=== PATIENT | female | born 1985 | race Caucasian/White ===

== ENCOUNTER 2022-12-22 16:05 | Outpatient (AMB) | payer OTHER, SELFPAY ==
--- NOTE | 2022-12-22 16:07 | MHC.PC.OV ---
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 Will order labs. 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 Pt has a hx of lupus. She was seeing rheumatology previously. She was put on plaquenil which did not agree with her. will refer. [facility] Family History Father Substance abuse in family Family history of mental disorder Mother Family history of mental disorder Sister Family history of mental disorder Brother Family history of mental disorder Social History Housing: House Patient Tobacco Use Status: Current everyday Tobacco user e-Cigarette/Vaping Use: Never Used Current occupational status: employed Cognitive needs: No Hearing needs: No Vision needs: Yes Female Reproductive History Menstrual Date of last menstrual period: 12/04/22 control method: none Date of last pap smear: 11/04/21 History of abnormal pap smear: No History of STI: No Questionnaire PHQ-9 Over the last 2 weeks, how often have you been bothered by any of the following problems? 1. Little interest or pleasure in doing things: several days 2. Feeling down, depressed, or hopeless: several days 3. Trouble falling or staying asleep, or sleeping too much: several days 4. Feeling tired or having little energy: several days 5. Poor appetite or overeating: not at all 6. Feeling bad about yourself - or that you are a failure or have let yourself or your family down: not at all 7. Trouble concentrating on things, such as reading the newspaper or watching television: several days 8. Moving or speaking so slowly that other people could have noticed. Or the opposite - being so fidgety or restless that you have been moving around a lot more than usual: not at all 9. Thoughts that you would be better off or of hurting yourself in some way: not at all Total score: 5 Depression Screening Interpretation: Negative Depression Screening Done: Yes [id number] - PHQ-9 Billing: Yes Source: Developed by Drs. Ace Gar, Yoanna Linton, Sudhir Lopez and colleagues, with an educational kenn from [employer] Thrive Questionnaire Date Thrive assessed: 12/22/22 I am a: Patient What is your living situation today?: I have a steady place to live Within the past 12 months, did the food you bought not last and you didn't have the money to get more?: Never true Within the past 12 months, did you worry whether your food would run out before you got money to buy more?: Never true Do you have trouble paying for medicines?: No Do you have trouble getting transportation to medical appointments?: No Do you have trouble paying your heating and electricity bill?: No Do you have trouble taking care of your child, family member or friend?: No Do you have trouble with day-to-day activities such as bathing, preparing meals, shopping, managing finances, etc.?: No Are you currently unemployed and looking for a job?: No Are you interested in more education?: No AUDIT C Alcohol Use Questionnaire (AUDIT-C) 1. How often do you have a drink containing alcohol?: 2-3 times a week 2. How many drinks containing alcohol do you have on a typical day when you are drinking?: 1 or 2 3. How often do you have six or more drinks on one occasion?: Never Total Score: 3 Score Reviewed/Action Taken: No CRIS-7 AMB Questionnaire CRIS-7 Date CRIS - 7 assessed: 12/22/22 Feeling nervous, anxious, or on edge: 1 = Several days Not being able to stop or control worryin = Several days Worrying too much about different things: 1 = Several days Trouble relaxin = Several days Being so restless that it is hard to sit still: 1 = Several days Becoming easily annoyed or irritable: 1 = Several days Feeling afraid as if something awful might happen: 1 = Several days Total CRIS-7 score (0-4 normal; 5-9 mild; 10-14 moderate; 15-21 severe): 7 Source: Developed by Drs. Ace Gar, Yoanna Linton, Sudhir Lopez and colleagues, with an educational kenn from [employer] CRIS-7 Assessment Billing CRIS-7 Assessment Tool: CRIS-7 Assessment 52285 Review of Systems Const Denies chills and Denies fever(s) Eyes Denies blurry vision ENT Denies vertigo, Denies dizziness and Denies sore throat Card Denies chest pain at rest, Denies chest pain with activity, Denies diaphoresis, Denies dyspnea and Denies dyspnea on exertion Resp Denies cough, Denies dyspnea, Denies dyspnea on exertion and Denies wheezing GI Denies abdominal pain, Denies melena, Denies hematochezia, Denies constipation, Denies diarrhea and Denies loose stools Denies hematuria Musc Denies numbness and Denies tingling Skin/Breast Denies lesions Neuro Denies vertigo, Denies dizziness, Denies numbness and Denies tingling Psych Denies anxiety, Denies depression, Denies homicidal ideation, Denies suicidal ideation and Denies other (substance abuse) Aller/Immun Denies wheezing Physical exam (Primary Care) Vital Signs: Last Vital Signs Pulse 89 12/22/22 16:13 BP 122/86 12/22/22 16:13 Pulse Ox 98 12/22/22 16:13 Oxygen Delivery Method Room Air 12/22/22 16:13 BMI result Body Mass Index 35.0 Tobacco/Smoking Status: Tobacco use Status Tobacco use date assessed 12/22/22 12/22/22 16:19 Patient Tobacco Use Status Current everyday Tobacco 12/22/22 16:19 e-Cigarette/Vaping Use Never Used 12/22/22 16:19 PHQ-9: PHQ-9 Score PHQ-9: Total score 5 12/22/22 16:54 Depression Screening Interpretation: Negative Thrive Assessment: Date of Thrive Assessment Date Thrive assessed 12/22/22 12/22/22 16:54 Const General: cooperative Nutritional Appearance: obese Orientation/consciousness: patient oriented x3 HENMT Head: Yes normal to inspection, Yes normocephalic and Yes atraumatic Ears: TM's normal bilaterally Eyes General: appearance normal, both eyes and all related structures Alignment and Position: alignment normal and position normal Neck Neck: Yes normal visual inspection and Yes no lymphadenopathy Thyroid: Thyroid normal Resp Effort & Inspection: normal respiratory effort Auscultation: clear to auscultation bilaterally Cardio Rate: regular rate Rhythm: regular rhythm Heart sounds: S1 normal heart sound present, S2 normal heart sound present and no murmurs GI Palpation (GI): Soft to palpation and nontender Auscultation: normal bowel sounds Skin Other: very large bald spot to right occipital region of head Rashes: no rashes Neuro General: patient oriented x3, moves all extremities, no focal motor deficits and deep tendon reflexes 2+ bilaterally Romberg Test: Negative Psych Appearance: grossly normal Mental Status: mental status grossly normal Speech and movement: Normal speech and movement present Affect: normal affect Attitude: cooperative Thought process: Normal thought process present Thought content: Normal thought content present Insight: Good insight present (Psych) Judgement: Good judgement present (Psych) Assessment and Plan Assessment & Plan (1) Lupus: Code(s): M32.9 - Systemic lupus erythematosus, unspecified Plan: Referred to rheumatology (2) Physical exam: Code(s): Z00.00 - Encounter for general adult medical examination without abnormal findings Plan: Labs ordered (3) Screening for cervical cancer: Code(s): Z12.4 - Encounter for screening for malignant neoplasm of cervix 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 Scribed for CARLOS Gerardo by Angelique Monroy medical office assistant instructor, on 12/22/2022 at 16:25 EST Orders: Orders Complete Blood Count Auto Diff Today Z00.00 - Encounter for general adult medical examination without abnormal findings TSH reflex Free T4 Today Z00.00 - Encounter for general adult medical examination without abnormal findings UA CC w/rflx Micro + Cult Today Z00.00 - Encounter for general adult medical examination without abnormal findings Comprehensive [place]. Panel Fast Today Z00.00 - Encounter for general adult medical examination without abnormal findings Lipid Panel Today Z00.00 - Encounter for general adult medical examination without abnormal findings Referrals Rheumatology Referral M32.9 - Systemic lupus erythematosus, unspecified EXECUTIVE TALENT ACQUISITION CONSULTANT Referral Z12.4 - Encounter for screening for malignant neoplasm of cervix Coding Level of Care Code New Pt Prev Care 18-39yr([id number] Diagnoses Lupus M32.9 Physical exam Z00.00 Screening for cervical cancer Z12.4 Additional Codes CRIS-7 Assessment Billing - CRIS-7 Assessment Tool: CRIS-7 Assessment [id number] ([id number])
[2022-12-22 16:13] VITALS: BP 122/86; PULSE 89; O2SAT 98; BMI 35.0
== END 2022-12-22 16:45 | disposition home or self-care (01) ==
PROVIDERS: PCP Nurse Practitioner Family; Visit Provider Nurse Practitioner Family
DX: M32.9 Systemic lupus erythematosus, unspecified (principal); Z00.00 Encounter for general adult medical examination without abnormal findings; Z12.4 Encounter for screening for malignant neoplasm of cervix
CPT/HCPCS: 99385

== ENCOUNTER 2023-02-24 08:37 | Outpatient (AMB) | payer OTHER, SELFPAY ==
[2023-02-24 08:39] VITALS: BP 140/90; PULSE 107; TEMP 36.1; O2SAT 98; BMI 40.9
--- NOTE | 2023-02-24 08:39 | A.OFFVIS_ITS ---
Intake Vital Signs 02/24/23 08:39 Height 5 ft 4 in Weight 238 lb 1.588 oz BMI 40.9 BP 140/90 H Blood Pressure Location Lt brachial Position Sitting Pulse 107 H Pulse Source Pulse Oximeter Temp 97 F Temp Source Skin Pulse Oximetry (%) 98 Oxygen Delivery Method Room Air Intake Visit Reasons: SLE Intake Note: New pt presents today for SLE consult. Former rheum patient at [facility]. Last labs done in December. No sx's today. Reports joint pain, fatigue, hair loss early February. Capacity Planning Engineer Required: No Accompanied by: Self / Same As Patient Allergies No Known Allergies Allergy (Verified 02/24/23 08:42) Medication List - Last Reconciled 02/24/23 by Camille Strickland MD No Known Home Meds HPI HPI Comments History of Present Illness Details This is a 38-year-old female with SLE who presents as a new patient. Patient stated that for years she has had flare-ups of generalized weakness, brain fog, body aches, joint pains especially hands, shoulders and hips. She also gets burning rashes on her face and has burning sensation in her mouth when she goes out in the sun. More recently she has been having an area of enlarging alopecia in the back of her scalp towards the right. She denies any history of DVT/PE. Patient had 1 and 1 child. No abortions or miscarriages. Denies history suggestive of Raynaud's. States that her sister has Reyes's thyroiditis. She was evaluated by Rheumatology at [facility] back in 2020. She was started on hydroxychloroquine. She took it for 1-2 weeks and it did not agree with her. She does not like to take medications. 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 Cognitive needs: No Hearing needs: No Vision needs: Yes Female Reproductive History Menstrual Total pregnancies: 1 Number of Living Children: 1 Review of Systems Const Reports fatigue, Denies fever(s), Reports headache(s) and Reports weakness Eyes Reports dry eyes and Reports itchy eyes ENT Reports dizziness, Reports dry mouth and Reports headache(s) Musc Reports myalgias and Reports arthralgias Skin/Breast Reports alopecia and Reports rash Neuro Reports dizziness, Reports headache(s) and Reports weakness Psych Reports anxiety and Reports depression Endo Reports fatigue Aller/Immun Reports itchy eyes Physical Exam Vital Signs: Last Vital Signs Temp 97 F 02/24/23 08:39 Pulse 107 H 02/24/23 08:39 BP 140/90 H 02/24/23 08:39 Pulse Ox 98 02/24/23 08:39 Oxygen Delivery Method Room Air 02/24/23 08:39 BMI result Body Mass Index 40.9 Const General: cooperative, healthy appearing and comfortable Nutritional Appearance: obese morbidly obese Orientation/consciousness: patient oriented x3 Limitations: no limitations HEENT Other: Mildly dry oral mucosa Head: Yes normocephalic and Yes atraumatic Resp Effort & Inspection: normal respiratory effort and able to speak in complete sentences Auscultation: clear to auscultation bilaterally Cardio Rate: regular rate Rhythm: regular rhythm GI Inspection: No distended Palpation (GI): Soft to palpation and nontender Skin Other: A patch of alopecia in the posterior scalp, towards the right without no scaling or erythema General skin exam: no rashes or lesions noted Neuro General: patient oriented x3 Extrem Other: No active synovitis Normal nailfold capillaroscopy Results Reviewed Results Reviewed: Labs 2020 DEMAR 1-640 homogeneous MECHANICAL EQUIPMENT TEST ENGINEER/Park/SSA/SSB/C3/C4 RF/CCP all negative/normal DsDNA 1:20 (<1:20) HLA B27 negative Labs 10/2022 ESR 16 CBC nl CPK 61 U PCR Urinalysis is normal SSA/SSB/Park/MECHANICAL EQUIPMENT TEST ENGINEER/Scl 70/dsDNA/Rosemary 1 all negative Vitamin-D 31 BMP unremarkable AST 46 (<37) ALT 67 (<40) CRP 7.7 (<4.0) Assessment & Plan Assessment & Plan (1) Lupus: Comment: dx 2020 (arthralgias, fatigue, brain fog, photosensitive rashes, ++DEMAR, borderline positive dsDNA) Code(s): M32.9 - Systemic lupus erythematosus, unspecified Plan: This is a 38-year-old female with SLE who presents as a new patient. She is changing rheumatologists. There are no rashes or active synovitis on exam. Most recent SLE activity workup was negative. She has not had any SLE organ involvement. In the past patient took hydroxychloroquine for about 1 week and did not like it. She states that she does not want to take any medications. She would like natural treatments Discussed turmeric and vitamin-D supplementation, avoiding sun exposure. Follow-up with Dermatology for alopecia Re-evaluate in 6 months. Labs before next visit in 6 months Plan I spent 48 minutes reviewing patient's chart, evaluating patient, ordering diagnostic workup, counseling patient and documenting in the chart Orders: Orders DNA Double Stranded-Crithidia 6 Months M32.9 - Systemic lupus erythematosus, unspecified Erythrocyte Sedimentation Rate 6 Months M32.9 - Systemic lupus erythematosus, unspecified Protein Creatinine Ratio, Ur 6 Months M32.9 - Systemic lupus erythematosus, unspecified Thyroglobulin Antibodies 6 Months E07.9 - Disorder of thyroid, unspecified Thyroid Peroxidase Antibodies 6 Months E07.9 - Disorder of thyroid, unspecified TSH reflex Free T4 6 Months E07.9 - Disorder of thyroid, unspecified Anti DNA DS Antibody 6 Months M32.9 - Systemic lupus erythematosus, unspecified Complement C3 6 Months M32.9 - Systemic lupus erythematosus, unspecified Complement C4 6 Months M32.9 - Systemic lupus erythematosus, unspecified C Reactive Protein 6 Months M32.9 - Systemic lupus erythematosus, unspecified UA w Microscopic 6 Months M32.9 - Systemic lupus erythematosus, unspecified Complete Blood Count Auto Diff 6 Months E07.9 - Disorder of thyroid, unspecified Comprehensive Met. Panel 6 Months E07.9 - Disorder of thyroid, unspecified Coding Level of Care Code New Pt Level 4 (82088) Diagnoses Lupus M32.9
== END 2023-02-24 09:16 | disposition home or self-care (01) ==
PROVIDERS: PCP Nurse Practitioner Family; Visit Provider Student in an Organized Health Care Education/Training Program
DX: M32.9 Systemic lupus erythematosus, unspecified (principal)
CPT/HCPCS: 99204

== ENCOUNTER → 2023-02-24 08:37 | Outpatient (BNVA) | payer OTHER, SELFPAY | PROVIDERS: PCP Nurse Practitioner Family; Visit Provider Student in an Organized Health Care Education/Training Program ==

== ENCOUNTER 2023-05-31 13:03 | Outpatient (AMB) | payer OTHER, SELFPAY ==
[2023-05-31 13:05] VITALS: BP 150/74; BMI 40.7
--- NOTE | 2023-05-31 13:05 | A.OFFVIS_ITS ---
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 She has a history of delivering 1 child at [place] [id number] 14 years ago. She did have gestational diabetes at that time she does sometimes have high blood pressure and her blood pressure needs to be taken again at the end of the visit and improves usually. She does have lupus but she is not feeling good about the medicine. She saw her new primary care provider last and did not realize until she open the portal to check on this appointment that she has blood work that has been ordered. She has had a weight issue for many years she turned sometimes can lose it and then sometimes gained it back. Right now she is trying to get started and she started just this week with intermittent fasting and feels better doing that and she is trying to be very careful with carbs and what she eats and helping the family make good choices as well. She admits to having facial hair for many many years but it was sometime after having had her children she does get periods at least once a month but they are not coming exactly when she expects them and sometimes they come closer than she expects. [facility] Medical History Lupus Family History Father Substance abuse in family Family history of mental disorder Mother Family history of mental disorder Sister Family history of mental disorder Reyes's thyroiditis Brother Family history of mental disorder Other Hx of autoimmune disorder Social History (Updated 05/31/23 @ 13:07 by ANGELES Sheikh) Household Members: Spouse and Children Housing: House Patient Tobacco Use Status: Current everyday Tobacco user Tobacco use type: Cigarette Cigarette Packs Per Day: 5 e-Cigarette/Vaping Use: Never Used Substance Use Type: Marijuana Current occupational status: employed 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 Cognitive needs: No Hearing needs: No Vision needs: Yes Female Reproductive History Menstrual Age of Menarche: 13 Duration of menses: 3-5 days Date of last menstrual period: 05/24/23 control method: none Total pregnancies: 1 Full term: 1 Number of Living Children: 1 Physical Exam Vital Signs: Last Vital Signs BP 150/74 H 05/31/23 13:05 BMI result Body Mass Index 40.7 Const Other: Hirsute is Um noted especially facial (shaved) General: healthy appearing, comfortable, no acute distress, well developed and alert Nutritional Appearance: average body habitus and obese Orientation/consciousness: patient oriented x3 Limitations: no limitations HEENT Head: Yes normocephalic Neck Neck: Yes normal visual inspection Chest Chest palpation & inspection: normal inspection of the chest Breast/axilla inspection: normal inspection of the breasts and normal inspection of the axillae Breast/axilla palpation: normal palpation of the breasts and normal palpation of the axillae Resp Effort & Inspection: normal respiratory effort GI Inspection: Yes normal to inspection, No Abdominal wall edema and No distended Palpation (GI): Soft to palpation and nontender Other: Speculum exam within normal limits vagina pink and moist cervix multiparous pink smooth moist with normal appearing mucus approaching midcycle. Uterus midposition to anteverted mobile nontender adnexa nontender fair tone with Kegel. General: Yes bladder normal to palpation External Female Exam: normal external appearance and normal appearance of the urethra Speculum Exam - Vagina: normal appearance of the vagina, normal palpation and normal vaginal discharge Speculum Exam - Cervix: normal appearance of the cervix, normal palpation and nontender Bimanual exam- vagina & uterus: normal bimanual exam, normal palpation, uterine size normal, bladder normal to palpation, consistency normal, normal palpation, uterine mobility normal, uterine shape normal, No Cervical tenderness present, non-tender and no cervical motion tenderness Bimanual Exam- Adnexa, other: normal adnexae, no masses, normal and No adnexal tenderness Neuro General: patient oriented x3 Assessment & Plan Assessment & Plan (1) Hirsutism: Code(s): L68.0 - Hirsutism (2) Well woman exam with routine gynecological exam: Code(s): Z01.419 - Encounter for gynecological examination (general) (routine) without abnormal findings (3) Menstrual periods irregular: Code(s): N92.6 - Irregular menstruation, unspecified (4) Obesity: Code(s): E66.9 - Obesity, unspecified Plan -----Discussed in this visit the following: healthy balanced diet, regular and consistent exercise, getting recommended health screens, doing the best she can for her particular health concerns, kegel exercises, pap smear screening and followup recommendations, mammography screening and SBE, normal changes in cycles in her life stage--- .Discussed in general terms the challenges of obesity and challenges for her health and efforts she is engaging in to manage this including dietary changes water intake attention to sleep inclusion of a regular exercise have it and dealing with the may need stressors of life that can contribute to obesity in general. Encouraged her to continue in all have her best efforts ---Discussed PCOS in general and specifically about the interplay of the abnormal hormonal milieu related to being overweight, with the elevations of many hormone levels, including testosterone and estrogen, as well as others that contribute to cycles that are anovulatory and therefore prolonged, and when periods do come they come very heavy, and can contribute to lots of cramping, with passage of clots and anemia. Discussed the common symptoms related to the elvated hormonal levels, including increased facial hair, male pattern hair thinning, acne, and increased central abdominal girth. Discussed the interplay with difficulty getting when desired, but still possible, and therefore the need to contracept as appropriate and when needed. Discussed the role of weight loss as the primary, most important, and most likely to succeed, intervention, in achieving healthier status as regards PCOS, and ovulatory regular cycles. Additionally the very important relationship to elevated insulin levels, and blood sugars, and high risk of pre diabetes, progressing to diabetes as well as other metabolic syndromes related to this was discussed. Also discussed common interventions for some of the above, including if appropriate, use of oral contraceptives, and progestin iuds, and provera. I ordered a testosterone level that she can add to all the fasting lab work that she still has to do for her primary care provider additionally appears like her other physician has ordered some labs as well. Discussed the importance of making sure that she has all those other factors checked like hypertension which she is floating with as well as the diabetes and all of the other dyscrasias that can occur in the face of obesity and in the setting of a PCOS type picture discussed that no one particular test diagnosis it it is more of a syndrome and as fertility is not her concern more the concern is the risk for diabetes and hypertension and other metabolic disorders which she will be checking with her primary. Orders: Orders Pap Smear Today Z12.4 - Encounter for screening for malignant neoplasm of cervix Testosterone, Free/Total Today E66.9 - Obesity, unspecified, L68.0 - Hirsutism, N92.6 - Irregular menstruation, unspecified, Z01.419 - Encounter for gynecological examination (general) (routine) without abnormal findings Coding Level of Care Code New Pt Prev Care 18-39yr([id number] Diagnoses Hirsutism L68.0 Well woman exam with routine gynecological exam Z01.419 Menstrual periods irregular N92.6 Obesity E66.9
== END 2023-05-31 13:49 | disposition home or self-care (01) ==
PROVIDERS: PCP Nurse Practitioner Family; Visit Provider Advanced Practice Midwife
DX: Z01.419 Encounter for gynecological examination (general) (routine) without abnormal findings (principal); L68.0 Hirsutism; N92.6 Irregular menstruation, unspecified; E66.9 Obesity, unspecified
CPT/HCPCS: 99385

== ENCOUNTER 2023-05-31 13:03 | Outpatient (REF) | payer OTHER, SELFPAY ==
[2023-06-08 06:04] LABS: HPV 16 RNA NOT DETECTED (NOT DETECTED); HPV mRNA E6/E7 rflx Detected (Not Detected)
== END 2023-05-31 13:04 | disposition home or self-care (01) ==
LOC: HO.LNP 13:03
PROVIDERS: PCP Nurse Practitioner Family; Visit Provider Advanced Practice Midwife
DX: Z01.419 Encounter for gynecological examination (general) (routine) without abnormal findings (principal); Z11.51 Encounter for screening for human papillomavirus (HPV); N92.6 Irregular menstruation, unspecified
CPT/HCPCS: 87624; 87625; 88142

== ENCOUNTER 2023-06-14 07:54 | Outpatient (REF) | payer OTHER, SELFPAY ==
[2023-06-14 10:33] LABS: Appearance Urine Clear; Color Urine Yellow; Glucose Urine UA 100 mg/dL (Negative); Leukocyte Esterase Urine Negative (Negative); Nitrite Urine Negative (Negative); Specific Gravity - Urine 1.015 (1.005-1.025); Urine Blood Negative (Negative); Urine Ketones Negative (Negative); Urine Protein Negative (Neg-Trace)
[2023-06-14 10:37] LABS: MANUAL DIFF FLAG NO
[2023-06-14 11:02] LABS: Basophils Absolute Auto 0.1 X10*3/uL (0.0-0.2); Basophils Percent Auto 0.7 % (0-2); Eosinophils Absolute Auto 0.3 X10*3/uL (0.0-0.4); Eosinophils Percent Auto 4.3 % (0-4); Hematocrit 45.1 % (37.0-47.0); Hemoglobin 15.2 g/dl (12.0-16.0); Imm Gran Abs Auto 0.02 X10*3/uL (0.00-0.03); Imm Gran Pct Auto 0.3 % (0.0-0.4); Lymphocytes Absolute Auto 1.6 X10*3/uL (1.2-4.9); Mean Corpuscular HGB Conc 33.7 g/dl (31.0-35.0); Mean Corpuscular Hemoglobin 30.2 pg (27.0-33.0); Mean Corpuscular Volume 89.5 fL (80.0-98.0); Mean Platelet Volume 10.8 fL (9.4-12.3); Monocytes Absolute Auto 0.5 X10*3/uL (0.1-1.2); Monocytes Percent Auto 6.9 % (2-11); Neutrophils Absolute Auto 4.6 x10*3/uL (2.0-8.3); Neutrophils Percent Auto 64.8 % (45-73); Platelet Count 242 X10*3/uL (160-400); Red Blood Count 5.04 X10*6/uL (4.20-5.50); Red Cell Distribution Width 12.4 % (11.0-16.0); White Blood Count 7.1 X10*3/uL (4.8-10.8)
[2023-06-14 11:17] LABS: Alanine Aminotransferase 65 U/L (0-31); Albumin Level 4.2 g/dL (3.5-5.0); Alkaline Phosphatase 55 U/L (39-117); Anion Gap 12 (12-20); Aspartate Amino Transferase 31 U/L (5-31); Bilirubin Total 0.5 mg/dL (0.0-1.0); Blood Urea Nitrogen 9 mg/dL (9-16); Calcium 8.9 mg/dL (8.4-10.2); Carbon Dioxide 29 mmol/L (22-29); Chloride 102 mmol/L (96-108); Cholesterol 191 mg/dL (<200); Estimated Glomerular Filt Rate > 60; Glucose Fasting 213 mg/dL (60-99); HDL Cholesterol 41 mg/dL (>40); LDL Cholesterol Calculated 116 mg/dL (<100); Potassium 4.5 mmol/L (3.3-5.1); Sodium 138 mmol/L (135-145); TSH reflex Free T4 1.29 uIU/mL (0.32-4.0); Triglycerides 171 mg/dL (<150)
[2023-06-18 16:18] LABS: Testosterone, Free 9.8 pg/mL (0.1-6.4); Testosterone, Total 53 ng/dL (2-45)
== END 2023-06-14 07:55 | disposition home or self-care (01) ==
LOC: HO.HMGCLDS 07:54
PROVIDERS: Advanced Practice Midwife; PCP Nurse Practitioner Family; Visit Provider Nurse Practitioner Family
DX: Z00.00 Encounter for general adult medical examination without abnormal findings (principal); E66.9 Obesity, unspecified; L68.0 Hirsutism; N92.6 Irregular menstruation, unspecified
CPT/HCPCS: 36415; 80053; 80061; 81003; 84402; 84403; 84443; 85025

== ENCOUNTER 2023-06-19 07:41 | Outpatient (AMB) | payer OTHER, SELFPAY ==
--- NOTE | 2023-06-19 07:51 | MHC.PC.OV ---
Intake Visit Reasons: lab review from 06/13 Allergies No Known Allergies Allergy (Verified 05/31/23 13:06) Tobacco use date assessed: 12/22/22 Dental Screening Dental Screen Date: 12/22/22 HPI lab review from 06/13 HPI Details recent lab work showed a increased FBS of 213. Repeating this in the near future. Most likely will start metformin in the near future, ? PCOS component as well. Pt does report having a eye exam appt set up for this february. Pt denies any polyuria, polydipsia, or neuropathy. SHe just started intermittent fasting 16-8 hrs. Encouraged working on diet as well. I will follow up with her and await repeated labs. 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 Ace Gar, Yoanna Linton, Sudhir Lopez and colleagues, with an educational kenn from [employer]. Physical exam (Primary Care) Tobacco/Smoking Status: Tobacco use Status Tobacco use date assessed 12/22/22 06/19/23 07:54 Patient Tobacco Use Status Current everyday Tobacco 06/19/23 07:54 Tobacco use type Cigarette 06/19/23 07:54 e-Cigarette/Vaping Use Never Used 06/19/23 07:54 Thrive Assessment: Date of Thrive Assessment Date Thrive assessed 12/22/22 06/19/23 07:54 Const General: cooperative, comfortable and no acute distress Psych Appearance: grossly normal Mental Status: mental status grossly normal Speech and movement: Normal speech and movement present Affect: normal affect Thought process: Normal thought process present Thought content: Normal thought content present Insight: Good insight present (Psych) Judgement: Good judgement present (Psych) Telehealth Telehealth Location of provider rendering services: practice address Location of patient: address on file Patient Identification confirmed using: Name, : Yes Telehealth method: video Patient verbally consented to billing insurance company: Yes Patient informed of any privacy concerns related to visit: Yes Minutes spent on Phone/Video with Pt.: 15 Assessment and Plan Assessment & Plan (1) PCOS (polycystic ovarian syndrome): Code(s): E28.2 - Polycystic ovarian syndrome Plan: follows up with senior developer (2) Elevated fasting blood sugar: Code(s): R73.01 - Impaired fasting glucose Plan repeating labs, pt will work on her diet, intermittent fasting as well, will send meter and supplies after repeat labs. may start metformin. Orders: Orders Comprehensive [place]. Panel Fast Today R73.01 - Impaired fasting glucose TSH reflex Free T4 Today R73.01 - Impaired fasting glucose Lipid Panel Today R73.01 - Impaired fasting glucose Hemoglobin A1c Today R73.01 - Impaired fasting glucose Microalbumin, Random (w Creat) Today R73.01 - Impaired fasting glucose Complete Blood Count Auto Diff Today R73.01 - Impaired fasting glucose UA CC w/rflx Micro + Cult Today R73.01 - Impaired fasting glucose Coding Level of Care Code Tele Est Pt Level 3 (73410) Diagnoses PCOS (polycystic ovarian syndrome) E28.2 Elevated fasting blood sugar R73.01
== END 2023-06-19 10:48 | disposition home or self-care (01) ==
LOC: HO.HMGC 07:41
PROVIDERS: PCP Nurse Practitioner Family; Visit Provider Nurse Practitioner Family
DX: E28.2 Polycystic ovarian syndrome (principal); R73.01 Impaired fasting glucose
CPT/HCPCS: 99213

== ENCOUNTER 2023-07-03 13:45 | Outpatient (AMB) | payer OTHER, SELFPAY ==
--- NOTE | 2023-07-03 13:46 | A.OFFVIS_ITS ---
Intake Visit Reasons: Tv lab results Comprehensive Ophthalmologist Required: No Allergies No Known Allergies Allergy (Verified 07/03/23 13:46) Medication List - Last Reconciled 07/03/23 by Milagros Parr CNM No Known Home Meds Is last menstrual period known: Yes Last menstrual period: 06/28/23 Post menopausal: No HPI HPI Tv lab results: Details: This is a visit to discuss patient's lab results PFSH Medical History Lupus Family History Father Substance abuse in family Family history of mental disorder Mother Family history of mental disorder Sister Family history of mental disorder Reyes's thyroiditis Brother Family history of mental disorder Other Hx of autoimmune disorder Social History Household Members: Spouse and Children Housing: House Patient Tobacco Use Status: Current everyday Tobacco user Tobacco use type: Cigarette Cigarette Packs Per Day: 5 e-Cigarette/Vaping Use: Never Used Substance Use Type: Marijuana Current occupational status: employed 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 Cognitive needs: No Hearing needs: No Vision needs: Yes Female Reproductive History Menstrual Age of Menarche: 13 Date of last menstrual period: 06/28/23 control method: none Telehealth Telehealth Telehealth Platform: ConnectToHome Location of provider rendering services: practice address Location of patient: address on file Patient Identification confirmed using: Name, : Yes Telehealth method: video Patient verbally consented to treatment: Yes Patient verbally consented to billing insurance company: Yes Patient informed of any privacy concerns related to visit: Yes Minutes spent on Phone/Video with Pt.: 10 Results Reviewed Results Reviewed: lissette: Susan Callahan Age/Sex: 38/F : 1985 Unit#: [id number] Attend Dr: Tae Boudreaux MECHANICAL TECH-BC Re06/14/23 Status: DEP [facility] Disch: SPEC : [id number] EMIR: 06/14/230758 STATUS: COMP REQ : [id number] RECD: 06/14/23-[address]: Tae Boudreaux [facility]- COMP: 06/14/23-1116 ENTERED: 06/14/[address] [facility] [address]: ORDERED: CMP Fast, Lipid Panel, TSH Rflx Test Result Flag Reference Sodium 138 135-145 mmol/L Potassium 4.5 3.3-5.1 mmol/L CL 102 96-108 mmol/L CO2 29 22-29 mmol/L Gap 12 12-20 BUN 9 9-16 mg/dL Creat 0.69 0.5-1.4 mg/dL EGFR > 60 NOTE: For -Japanese individuals, multiply the result by 1.210. Chronic Kidney Disease: Estimated GFR < 60 mL/min/1.73m2 Severe Kidney Disease: Estimated GFR < 15 mL/min/1.73m2 FBS 213 H 60-99 mg/dL A fasting glucose of 126 mg/dl or greater on more than one occasion is considered diagnostic of diabetes. CA 8.9 8.4-10.2 mg/dL Total Bili 0.5 0.0-1.0 mg/dL AST (GOT) 31 5-31 U/L ALT (GPT) 65 H 0-31 U/L Protein, Total 7.0 6.5-8.0 g/dL Alb 4.2 3.5-5.0 g/dL Triglyceride 171 H <150 mg/dL Desirable Triglyceride: less than 150 mg/dL Borderline High Triglyceride 150-199 mg/dL High Triglyceride: 200-499 mg/dL Very High Triglyceride: greater than or equal to 5OO mg/dL Cholesterol 191 <200 mg/dL Desirable Cholesterol: less than 200 mg/dL Borderline High Cholesterol: 200-239 mg/dL High Cholesterol: greater than 239 mg/dL LDL Calculated 116 H <100 mg/dL Desirable LDL: less than 100 mg/dL Near Optimal/Above Optimal LDL: 110-129 mg/dL Borderline High LDL: 130-159 mg/dL High LDL: 160-189 mg/dL Very High LDL: greater than or equal to 190 mg/dL HDL 41 >40 mg/dL Desirable HDL: greater than 40 mg/dL Note: This HDL assay may give artificially low results in patients with liver disease. Alk Phos 55 39-117 U/L TSH 1.29 0.32-4.0 uIU/mL Age/Sex: 38/F : 1985 Unit#: [id number] Attend Dr: Tae Boudreaux Re06/14/23 Status: DEP REF Location: [facility] Disch: SPEC : [id number] EMIR: 06/14/23 STATUS: COMP REQ : [id number] RECD: 06/14/23-[address]: Milagros Parr CNM COMP: 06/18/23 ENTERED: 06/14/[address]: Tae Boudraeux ORDERED: Testost Fr & T Test Result Flag Reference Testost, Tot 53 H 2-45 ng/dL For additional information, please refer to http://education.BurudaConcert/faq/ [email or web address] (This link is being provided for informational/ educational purposes only.) This test was developed and its analytical performance characteristics have been determined by [facility] [place], [place]. It has not been cleared or approved by the U.S. Food and Drug Administration. This assay has been validated pursuant to the CLIA regulations and is used for clinical purposes. Testost, Free 9.8 H 0.1-6.4 pg/mL This test was developed and its analytical performance characteristics have been determined by [facility] [place], [place]. It has not been cleared or approved by the U.S. Food and Drug Administration. This assay has been validated pursuant to the CLIA regulations and is used for clinical purposes. THIS TEST WAS PERFORMED AT: [employer] [address] ALEJANDRA GARNER MD,PHD lissette: Susan Callahan Age/Sex: 38/F Attending: Milagros Parr CNM : 1985 Submitted by: Milagros Parr CNM Copies to: Tae Boudreaux MR #: [id number] Status: DEP REF Collected: 05/31/23 Location: [facility] Received: 06/02/23 Interpretation General Category: Epithelial cell abnormality. Adequacy: Endocervical component present. Interpretation: Atypical squamous cells of undetermined significance, rare. Abundant blood present. HPV mRNA E6/E7: DETECTED This assay detects E6/E7 viral messenger RNA (mRNA) from 14 high-risk HPV types (16, 18, 31, 33, 35, 39, 45, 51, 52, 56, 58, 59, 66, 68) HPV Type 16 RNA: Not Detected HPV Type 18/45 RNA: Not Detected HPV testing performed by [facility], [place], [place]. See reference laboratory portion of the EMR for entire report. Clinical Information LMP: 05/24/23 Previous PAP test: 2018, Unknown findings Material Received ThinPrep-Cervical Copies To Tae Boudreaux MECHANICAL TECH-BC [address] [place] [address] [place] [address] [place] [address] Electronically Signed By: Tatum Andrew 06/12/23 7411 Patient: Susan Callahan Age/Sex: 38/F MR#: [id number] Page 1 of 2 Assessment & Plan Assessment & Plan (1) Elevated fasting blood sugar: Code(s): R73.01 - Impaired fasting glucose Category: Medical (2) PCOS (polycystic ovarian syndrome): Code(s): E28.2 - Polycystic ovarian syndrome Category: Medical (3) Obesity: Code(s): E66.9 - Obesity, unspecified Category: Medical (4) Hirsutism: Code(s): L68.0 - Hirsutism Category: Medical (5) Menstrual periods irregular: Code(s): N92.6 - Irregular menstruation, unspecified Category: Medical (6) Lupus: Comment: dx 2020 (arthralgias, fatigue, brain fog, photosensitive rashes, ++DEMAR, borderline positive dsDNA) Code(s): M32.9 - Systemic lupus erythematosus, unspecified Category: Medical (7) Screening for cervical cancer: Comment: 05/31/2023 Pap shows positive HPV, ASCUS, - refer for colpo. Code(s): Z12.4 - Encounter for screening for malignant neoplasm of cervix Category: Medical Plan Reviewed all of her labs as above. Specially elevated blood sugar fasting teen. She had before the test high-risk this tea with sugar all she has been doing fasting for weight loss. She has spoken with her primary care provider Tae Almodovar and we will be repeating the fasting blood sugar about a month from the last level. I also reviewed the other elevated levels and how they all go hand in hand with the obesity and PCOS and elevated liver functions do as well. She also feels she has getting a flare from her lupus it makes her feel sort of like she has the flu. Discussed adding exercise into the mix she is at least trying to stay active with her doing yd work. She is a little crust fallen as she is feeling like she is falling apart but I reminded her that she is doing well already in that she is already initiated doing what she can to lose weight and to keep in dialogue with her primary care provider about that. She has not appointment for colposcopy in July as well and she will be seeing her primary care provider.. Coding Level of Care Code Tele Est Pt Level 3 (07446) Diagnoses Elevated fasting blood sugar R73.01 PCOS (polycystic ovarian syndrome) E28.2 Obesity E66.9 Hirsutism L68.0 Menstrual periods irregular N92.6 Lupus M32.9 Screening for cervical cancer Z12.4 Comment 5 cr/ video w pt/ 10 charting
== END 2023-07-03 14:27 | disposition home or self-care (01) ==
LOC: HO.HWSM 13:45
PROVIDERS: PCP Nurse Practitioner Family; Visit Provider Advanced Practice Midwife
DX: R73.01 Impaired fasting glucose (principal); E28.2 Polycystic ovarian syndrome; E66.9 Obesity, unspecified; L68.0 Hirsutism; N92.6 Irregular menstruation, unspecified; M32.9 Systemic lupus erythematosus, unspecified; Z12.4 Encounter for screening for malignant neoplasm of cervix
CPT/HCPCS: 99213

== ENCOUNTER → 2023-07-03 13:45 | Outpatient (BNVA) | payer OTHER, SELFPAY | PROVIDERS: PCP Nurse Practitioner Family; Visit Provider Advanced Practice Midwife ==

== ENCOUNTER 2023-08-03 08:07 | Outpatient (REF) | payer OTHER, SELFPAY | END 2023-08-03 08:08 | disposition home or self-care (01) | LOC: HO.LNP 08:07 | PROVIDERS: PCP Nurse Practitioner Family; Visit Provider Obstetrics & Gynecology | DX: R87.610 Atypical squamous cells of undetermined significance on cytologic smear of cervix (ASC-US) (principal); R87.810 Cervical high risk human papillomavirus (HPV) DNA test positive | CPT/HCPCS: 57454; 81025; 88305; 88342; 88360 ==

== ENCOUNTER 2023-08-03 08:07 | Outpatient (AMB) | payer OTHER, SELFPAY ==
[2023-08-03 08:08] VITALS: BP 132/70; BMI 40.5
--- NOTE | 2023-08-03 08:08 | A.OFFVIS_ITS ---
Vital Signs 08/03/23 08:08 Height 5 ft 4 in Weight 235 lb 14.314 oz BMI 40.5 BP 132/70 Intake Visit Reasons: Colposcopy Community Relations Liaison Required: No Information Interpreted: non-clinical & clinical [employer]: [employer] Present (Candida REYNOSO) Accompanied by: Self / Same As Patient Allergies No Known Allergies Allergy (Verified 08/03/23 08:20) Is last menstrual period known: Yes Last menstrual period: 08/02/23 HPI Comments Details: Presenting for colposcopy regarding abnormal Pap smear showing ascus/HPV E6/E7 positive, HPV 16/18/45 negative [facility] Medical History Lupus Family History Father Substance abuse in family Family history of mental disorder Mother Family history of mental disorder Sister Family history of mental disorder Reyes's thyroiditis Brother Family history of mental disorder Other Hx of autoimmune disorder Social History Household Members: Spouse and Children Housing: House Patient Tobacco Use Status: Current everyday Tobacco user Tobacco use type: Cigarette Cigarette Packs Per Day: 5 e-Cigarette/Vaping Use: Never Used Substance Use Type: Marijuana Current occupational status: employed 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 We thoroughly discussed the procedure itself, including its details, alternatives, and all associated risks. This included but not limited to the following complications such as bleeding, infection, and injury to the vagina, bladder, and vessels, as well as the potential need for transfusion with all its associated risks. Subsequently, the patient sign the consent. Pap smear result: Ascus/HPV E6/E7 positive, HPV 16/18/45 negative Urine test in office = Negative Procedure: During the procedure, the following steps were performed: A speculum was inserted, and acetic acid was applied. Colposcopy was conducted, allowing visualization of the transformation zone. Acetowhite lesions were identified at the 1+6+7+9 o'clock position. Cervical biopsies were obtained from the 1+6+7+9 o'clock position, followed by an endocervical curettage (ECC). Vaginoscopy of the upper vagina revealed no evidence of aceto-white lesions. Hemostasis was achieved using Monsel solution, and the patient tolerated the procedure well. Post-Procedure Instructions: The patient was advised to promptly contact the office or the after hours answering service or go to the emergency room if experiencing a temperature exceeding 100.4?F, abdominal pain, nausea/vomiting, or bleeding. Additionally, the patient was instructed to abstain from vaginal intercourse and bathtub use. The patient confirmed understanding of these instructions. Discharge Instructions: The patient was instructed to schedule a follow-up appointment in 2 weeks for further evaluation and management. Please note that this note was generated using a voice recognition program, and errors may have occurred during motion picture printer. 46774-Hlzfhysst of cervix including upper vagina with biopsy and ECC Procedure code (CPT) selection complete Results AMB Test Urine AMB Test Urine Negative Last Edit by Candida Vargas CMA on 08:21 Assessment & Plan Assessment & Plan (1) ASCUS with positive high risk HPV cervical: Comment: HPV E6/E7 positive, HPV 16/18/45 negative Code(s): R87.610 - Atypical squamous cells of undetermined significance on cytologic smear of cervix (ASC-US); R87.810 - Cervical high risk human papillomavirus (HPV) DNA test positive Category: Medical Plan: Discussed with the patient the result of her abnormal pap, its significance, risk of progression, persistence, and regression. the false positive/negative rate of a Pap smear as a screening test in detecting cervical cancer and the indication for a diagnostic test -colposcopy, biopsy, endocervical curettage. Colposcopy/biopsy/ECC done, see procedure note. The patient verbalized understanding and agreed with the plan, all questions answered. Orders: Orders AMB HCG Urine Test Today Z32.02 - Encounter for test, result negative AMB Colposcopy Today R87.610 - Atypical squamous cells of undetermined significance on cytologic smear of cervix (ASC-US), R87.810 - Cervical high risk human papillomavirus (HPV) DNA test positive Coding Level of Care Code Procedure Only Diagnoses ASCUS with positive high risk HPV cervical R87.610; R87.810 CPT Codes Colposcopy - CPT: 09950-Jphdizvsf of cervix including upper vagina with biopsy and ECC ([id number])
== END 2023-08-03 08:32 | disposition home or self-care (01) ==
PROVIDERS: PCP Nurse Practitioner Family; Visit Provider Obstetrics & Gynecology
DX: R87.610 Atypical squamous cells of undetermined significance on cytologic smear of cervix (ASC-US) (principal); R87.810 Cervical high risk human papillomavirus (HPV) DNA test positive; Z32.02 Encounter for pregnancy test, result negative
CPT/HCPCS: 57454

== ENCOUNTER 2023-08-23 11:55 | Outpatient (REF) | payer OTHER, SELFPAY ==
[2023-08-23 13:03] LABS: MANUAL DIFF FLAG NO
[2023-08-23 13:35] LABS: Appearance Urine Clear; Color Urine Yellow; Glucose Urine UA >=1000 mg/dL (Negative); Leukocyte Esterase Urine Negative (Negative); Nitrite Urine Negative (Negative); Specific Gravity - Urine >= 1.030 (1.005-1.025); UMIC TRIGGER UA YES; Urine Blood Negative (Negative); Urine Ketones Trace mg/dL (Negative); Urine Protein Negative (Neg-Trace)
[2023-08-23 13:38] LABS: Bacteria Urine 2+ (None Seen); Hyaline Casts Urine 0-2 /LPF (0-2); RBC Urine 0-2 /HPF (0-2); Squamous Epithelial Cell Urine 0-2 /HPF (0-2)
[2023-08-23 13:50] LABS: Basophils Absolute Auto 0.1 X10*3/uL (0.0-0.2); Basophils Percent Auto 0.7 % (0-2); Eosinophils Absolute Auto 0.3 X10*3/uL (0.0-0.4); Eosinophils Percent Auto 4.4 % (0-4); Hematocrit 44.3 % (37.0-47.0); Hemoglobin 15.2 g/dl (12.0-16.0); Imm Gran Abs Auto 0.01 X10*3/uL (0.00-0.03); Imm Gran Pct Auto 0.1 % (0.0-0.4); Lymphocytes Absolute Auto 1.7 X10*3/uL (1.2-4.9); Lymphocytes Percent Auto 23.8 % (20-40); Mean Corpuscular HGB Conc 34.3 g/dl (31.0-35.0); Mean Corpuscular Hemoglobin 30.6 pg (27.0-33.0); Mean Corpuscular Volume 89.1 fL (80.0-98.0); Mean Platelet Volume 10.9 fL (9.4-12.3); Monocytes Absolute Auto 0.5 X10*3/uL (0.1-1.2); Monocytes Percent Auto 6.5 % (2-11); Neutrophils Absolute Auto 4.6 x10*3/uL (2.0-8.3); Neutrophils Percent Auto 64.5 % (45-73); Platelet Count 279 X10*3/uL (160-400); Red Blood Count 4.97 X10*6/uL (4.20-5.50); Red Cell Distribution Width 12.3 % (11.0-16.0); White Blood Count 7.1 X10*3/uL (4.8-10.8)
[2023-08-23 14:07] LABS: Alanine Aminotransferase 74 U/L (0-31); Albumin Level 4.5 g/dL (3.5-5.0); Alkaline Phosphatase 78 U/L (39-117); Anion Gap 12 (12-20); Aspartate Amino Transferase 36 U/L (5-31); Bilirubin Total 0.4 mg/dL (0.0-1.0); Blood Urea Nitrogen 12 mg/dL (9-16); C Reactive Protein 0.94 mg/dL (< or = 0.50); Calcium 9.6 mg/dL (8.4-10.2); Carbon Dioxide 27 mmol/L (22-29); Chloride 102 mmol/L (96-108); Estimated Glomerular Filt Rate > 60; Glucose Random 335 mg/dL (60-115); Sodium 137 mmol/L (135-145); Total Protein 7.5 g/dL (6.5-8.0)
[2023-08-23 14:16] LABS: Creatinine Urine 41.28 mg/dL; Total Protein Urine Random < 7 mg/dL (<12)
[2023-08-23 14:56] LABS: Erythrocyte Sedimentation Rate 5 MM/HR (0-20)
[2023-08-24 14:08] LABS: Anti DNA DS Antibody <1 IU/mL
[2023-08-24 17:39] LABS: Thyroglobulin Antibodies <1 IU/mL (< or = 1); Thyroid Peroxidase Antibodies <1 IU/mL (<9)
[2023-08-24 22:18] LABS: Complement C3 167 mg/dL (83-193)
[2023-08-30 14:43] LABS: DNAds, Crithidia Antibody Negative (Negative)
== END 2023-08-23 11:56 | disposition home or self-care (01) ==
LOC: HO.HMGCLDS 11:55
PROVIDERS: PCP Nurse Practitioner Family; Visit Provider Student in an Organized Health Care Education/Training Program
DX: M32.9 Systemic lupus erythematosus, unspecified (principal); E07.9 Disorder of thyroid, unspecified
CPT/HCPCS: 36415; 80053; 81001; 82570; 84156; 84443; 85025; 85652; 86140; 86160; 86225; 86255; 86376; 86800

== ENCOUNTER 2023-08-24 09:59 | Outpatient (AMB) | payer OTHER, SELFPAY ==
--- NOTE | 2023-08-24 10:11 | MHC.OFFVIS ---
Vital Signs 08/24/23 10:12 Height 5 ft 4 in Weight 235 lb 7.259 oz BMI 40.4 BP 130/86 Blood Pressure Location Rt brachial Position Sitting Pulse 88 Pulse Source Pulse Oximeter Pulse Oximetry (%) 99 Oxygen Delivery Method Room Air Intake Visit Reasons: SLE/CM Allergies No Known Allergies Allergy (Verified 08/24/23 10:15) Medication List - Last Reconciled 08/24/23 by Camille Strickland MD No Known Home Meds HPI Comments Details: 38-year-old female with mild lupus returns for follow-up. She states that she has been doing well overall. She gets intermittent rashes on her cheeks she goes out in the sun. No severe rashes. No fevers. The bald spot in the back of her scalp and growing more hair recently. She denies any other symptoms such as joint pain or swelling or fevers. She has not used her FMLA in about a month. Her blood work has shown hyperglycemia recently and she is getting checked by her PCP for diabetes. Initial history: This is a 38-year-old female with SLE who presents as a new patient. Patient stated that for years she has had flare-ups of generalized weakness, brain fog, body aches, joint pains especially hands, shoulders and hips. She also gets burning rashes on her face and has burning sensation in her mouth when she goes out in the sun. More recently she has been having an area of enlarging alopecia in the back of her scalp towards the right. She denies any history of DVT/PE. Patient had 1 and 1 child. No abortions or miscarriages. Denies history suggestive of Raynaud's. States that her sister has Reyes's thyroiditis. She was evaluated by Rheumatology at [facility] back in 2020. She was started on hydroxychloroquine. She took it for 1-2 weeks and it did not agree with her. She does not like to take medications. She would like natural treatments [facility] Medical History Lupus Family History Father Substance abuse in family Family history of mental disorder Mother Family history of mental disorder Sister Family history of mental disorder Reyes's thyroiditis Brother Family history of mental disorder Other Hx of autoimmune disorder Social History Household Members: Spouse and Children Housing: House Patient Tobacco Use Status: Current everyday Tobacco user Tobacco use type: Cigarette Cigarette Packs Per Day: 5 e-Cigarette/Vaping Use: Never Used Substance Use Type: Marijuana Current occupational status: employed 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 Cognitive needs: No Hearing needs: No Vision needs: Yes Female Reproductive History Menstrual Age of Menarche: 13 Total pregnancies: 1 Number of Living Children: 1 Review of Systems Const Denies fever(s) and Denies weight loss Musc Denies arthralgias, Denies joint swelling and Denies stiffness Skin/Breast Details: Hair growing back Reports photosensitivity and Reports rash Physical Exam Vital Signs: Last Vital Signs Pulse 88 08/24/23 10:12 BP 130/86 08/24/23 10:12 Pulse Ox 99 08/24/23 10:12 Oxygen Delivery Method Room Air 08/24/23 10:12 BMI result Body Mass Index 40.4 Const General: cooperative, healthy appearing and comfortable Nutritional Appearance: obese morbidly obese Orientation/consciousness: patient oriented x3 Limitations: no limitations HEENT Other: Mildly dry oral mucosa Head: Yes normocephalic and Yes atraumatic Resp Effort & Inspection: normal respiratory effort and able to speak in complete sentences Auscultation: clear to auscultation bilaterally Cardio Rate: regular rate Rhythm: regular rhythm GI Inspection: No distended Palpation (GI): Soft to palpation and nontender Skin Other: A patch of alopecia in the posterior scalp, towards the right without no scaling or erythema 04/2023 General skin exam: no rashes or lesions noted Neuro General: patient oriented x3 Extrem Other: No active synovitis Normal nailfold capillaroscopy Some hirsutism on her chin Results Reviewed Results Reviewed: Labs 2020 DEMAR 1-640 homogeneous PHARMACY TECHNOLOGY INSTRUCTOR/Park/SSA/SSB/C3/C4 RF/CCP all negative/normal DsDNA 1:20 (<1:20) HLA B27 negative Labs 10/2022 ESR 16 CBC nl CPK 61 U PCR Urinalysis is normal SSA/SSB/Park/PHARMACY TECHNOLOGY INSTRUCTOR/Scl 70/dsDNA/Rosemary 1 all negative Vitamin-D 31 BMP unremarkable AST 46 (<37) ALT 67 (<40) CRP 7.7 (<4.0) Assessment & Plan Assessment & Plan (1) Lupus: Comment: dx 2020 (arthralgias, fatigue, brain fog, photosensitive rashes, ++DEMAR, borderline positive dsDNA) Took HCQ for 1 week and could not tolerate it Code(s): M32.9 - Systemic lupus erythematosus, unspecified Category: Medical Plan: This is a 38-year-old female with mild SLE who presents for follow-up. Doing quite well overall. I do not see any signs of active SLE on exam. Labs showed no cytopenia, no proteinuria. Her dsDNA and C3-C4 are pending. Advised patient to avoid the sun, use long sleeves, long hands, sunscreen. There is no compelling need to start any DMARDs at this point Labs before next visit in 6 months (2) Hyperglycemia: Code(s): R73.9 - Hyperglycemia, unspecified Category: Medical Plan: Glucosuria and blood sugar 335 on recent labs. Patient has an appointment with her PCP to further evaluate Plan I spent 24 minutes reviewing patient's chart, evaluating patient, ordering diagnostic workup, counseling patient and documenting in the chart Orders: Orders Complement C3 6 Months M32.9 - Systemic lupus erythematosus, unspecified Complement C4 6 Months M32.9 - Systemic lupus erythematosus, unspecified C Reactive Protein 6 Months M32.9 - Systemic lupus erythematosus, unspecified UA w Microscopic 6 Months M32.9 - Systemic lupus erythematosus, unspecified Complete Blood Count Auto Diff 6 Months M32.9 - Systemic lupus erythematosus, unspecified Comprehensive Met. Panel 6 Months M32.9 - Systemic lupus erythematosus, unspecified Anti DNA DS Antibody 6 Months M32.9 - Systemic lupus erythematosus, unspecified Erythrocyte Sedimentation Rate 6 Months M32.9 - Systemic lupus erythematosus, unspecified Protein Creatinine Ratio, Ur 6 Months M32.9 - Systemic lupus erythematosus, unspecified Coding Level of Care Code Est Pt Level 4 (77254) Diagnoses Lupus M32.9 Hyperglycemia R73.9
[2023-08-24 10:12] VITALS: BP 130/86; PULSE 88; O2SAT 99; BMI 40.4
== END 2023-08-24 10:46 | disposition home or self-care (01) ==
PROVIDERS: PCP Nurse Practitioner Family; Visit Provider Student in an Organized Health Care Education/Training Program
DX: M32.9 Systemic lupus erythematosus, unspecified (principal); R73.9 Hyperglycemia, unspecified
CPT/HCPCS: 99214

== ENCOUNTER → 2023-08-24 09:59 | Outpatient (BNVA) | payer OTHER, SELFPAY | PROVIDERS: PCP Nurse Practitioner Family; Visit Provider Student in an Organized Health Care Education/Training Program ==

== ENCOUNTER 2024-02-20 13:32 | Outpatient (REF) | payer OTHER, SELFPAY ==
[2024-02-20 16:05] LABS: MANUAL DIFF FLAG NO
[2024-02-20 16:16] LABS: Basophils Absolute Auto 0.1 X10*3/uL (0.0-0.2); Basophils Percent Auto 0.6 % (0-2); Eosinophils Absolute Auto 0.3 X10*3/uL (0.0-0.4); Eosinophils Percent Auto 3.1 % (0-4); Hematocrit 43.8 % (37.0-47.0); Hemoglobin 15.3 g/dl (12.0-16.0); Imm Gran Abs Auto 0.04 X10*3/uL (0.00-0.03); Imm Gran Pct Auto 0.5 % (0.0-0.4); Lymphocytes Absolute Auto 1.9 X10*3/uL (1.2-4.9); Lymphocytes Percent Auto 23.1 % (20-40); Mean Corpuscular HGB Conc 34.9 g/dl (31.0-35.0); Mean Corpuscular Hemoglobin 30.1 pg (27.0-33.0); Mean Corpuscular Volume 86.2 fL (80.0-98.0); Mean Platelet Volume 10.7 fL (9.4-12.3); Monocytes Absolute Auto 0.5 X10*3/uL (0.1-1.2); Monocytes Percent Auto 6.7 % (2-11); NRBC Pct Auto 0.2 /100WBC (0.0-0.2); Neutrophils Absolute Auto 5.3 x10*3/uL (2.0-8.3); Platelet Count 270 X10*3/uL (160-400); Red Blood Count 5.08 X10*6/uL (4.20-5.50); Red Cell Distribution Width 12.3 % (11.0-16.0)
[2024-02-20 16:19] LABS: Appearance Urine Clear; Bacteria Urine None Seen (None Seen); Color Urine Yellow; Glucose Urine UA Negative (Negative); Hyaline Casts Urine 0-2 /LPF (0-2); Leukocyte Esterase Urine Negative (Negative); Nitrite Urine Negative (Negative); PH 6.5 (5.0-9.0); RBC Urine 0-2 /HPF (0-2); Specific Gravity - Urine <= 1.005 (1.005-1.025); Squamous Epithelial Cell Urine 0-2 /HPF (0-2); Urine Blood Negative (Negative); Urine Ketones Negative (Negative); Urine Protein Negative (Neg-Trace); WBC Urine 0-5 /HPF (0-5)
[2024-02-20 16:43] LABS: Albumin Level 4.5 g/dL (3.5-5.0); Alkaline Phosphatase 51 U/L (39-117); Anion Gap 12 (12-20); Aspartate Amino Transferase 46 U/L (5-31); Bilirubin Total 0.6 mg/dL (0.0-1.0); Blood Urea Nitrogen 8 mg/dL (9-16); C Reactive Protein 1.05 mg/dL (< or = 0.50); Calcium 9.2 mg/dL (8.4-10.2); Carbon Dioxide 23 mmol/L (22-29); Chloride 104 mmol/L (96-108); Cholesterol 201 mg/dL (<200); Estimated Glomerular Filt Rate > 60; Glucose Fasting 149 mg/dL (60-99); Glucose Random 149 mg/dL (60-115); HDL Cholesterol 41 mg/dL (>40); LDL Cholesterol Calculated 130 mg/dL (<100); Sodium 135 mmol/L (135-145); Total Protein 7.7 g/dL (6.5-8.0); Triglycerides 152 mg/dL (<150)
[2024-02-20 16:45] LABS: Estimated Average Glucose 203 mg/dL; Hemoglobin A1C 275.6204 umol/L; Hemoglobin A1c % 8.7 % (<6.0); Total Hemoglobin (HGBA1C) 3876.2603 umol/L
[2024-02-20 16:52] LABS: Creatinine Urine 19.56 mg/dL; Total Protein Urine Random < 7 mg/dL (<12)
[2024-02-20 17:02] LABS: Creatinine Urine 19.12 mg/dL; Microalbumin Urine < 5.0 mg/L
[2024-02-20 17:03] LABS: TSH reflex Free T4 1.15 uIU/mL (0.32-4.0)
[2024-02-20 17:13] LABS: Erythrocyte Sedimentation Rate 7 MM/HR (0-20)
[2024-02-20 18:21] LABS: Alanine Aminotransferase 73 U/L (0-31)
[2024-02-21 22:13] LABS: Anti DNA DS Antibody <1 IU/mL
[2024-02-22 10:04] LABS: Complement C3 196 mg/dL (83-193)
== END 2024-02-20 13:33 | disposition home or self-care (01) ==
LOC: HO.HMGCLDS 13:32
PROVIDERS: PCP Nurse Practitioner Family; Referring Provider Student in an Organized Health Care Education/Training Program; Visit Provider Nurse Practitioner Family
DX: M32.9 Systemic lupus erythematosus, unspecified (principal); R73.01 Impaired fasting glucose
CPT/HCPCS: 36415; 80053; 80061; 81001; 82043; 82570; 83036; 84156; 84443; 85025; 85652; 86140; 86160; 86225

== ENCOUNTER 2024-02-26 10:33 | Outpatient (AMB) | payer OTHER, SELFPAY ==
--- NOTE | 2024-02-26 10:43 | A.OFFVIS_ITS ---
Vital Signs 02/26/24 10:46 Height 5 ft 4 in Weight 238 lb 5.115 oz BMI 40.9 BP 152/90 H Blood Pressure Location Rt brachial Position Sitting Pulse 80 Pulse Source Pulse Oximeter Pulse Oximetry (%) 98 Oxygen Delivery Method Room Air Intake Visit Reasons: SLE Intake Note: Patient presents for SLE. Allergies No Known Allergies Allergy (Verified 02/26/24 10:45) Medication List - Last Reconciled 02/26/24 by Camille Strickland MD No Known Home Meds HPI Comments Details: 39-year-old female with mild lupus returns for follow-up. She states that she has been doing well overall. No new complaints today. She had an area of alopecia on her scalp in the past but it has grown hair. She has not had any new spots. Initial history: This is a 38-year-old female with SLE who presents as a new patient. Patient stated that for years she has had flare-ups of generalized weakness, brain fog, body aches, joint pains especially hands, shoulders and hips. She also gets burning rashes on her face and has burning sensation in her mouth when she goes out in the sun. More recently she has been having an area of enlarging alopecia in the back of her scalp towards the right. She denies any history of DVT/PE. Patient had 1 and 1 child. No abortions or miscarriages. Denies history suggestive of Raynaud's. States that her sister has Reyes's thyroiditis. She was evaluated by Rheumatology at [facility] back in 2020. She was started on hydroxychloroquine. She took it for 1-2 weeks and it did not agree with her. She does not like to take medications. She would like natural treatments [facility] Medical History Lupus Family History Father Substance abuse in family Family history of mental disorder Mother Family history of mental disorder Sister Family history of mental disorder Reyes's thyroiditis Brother Family history of mental disorder Other Hx of autoimmune disorder Social History Household Members: Spouse and Children Housing: House Patient Tobacco Use Status: Current everyday Tobacco user Tobacco use type: Cigarette Cigarette Packs Per Day: 5 e-Cigarette/Vaping Use: Never Used Substance Use Type: Marijuana Current occupational status: employed 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 Cognitive needs: No Hearing needs: No Vision needs: Yes Female Reproductive History Menstrual Age of Menarche: 13 Review of Systems Const Denies fever(s) and Denies weight loss Musc Denies arthralgias, Denies joint swelling and Denies stiffness Skin/Breast Details: Hair growing back Physical Exam Vital Signs: Last Vital Signs Pulse 80 02/26/24 10:46 BP 152/90 H 02/26/24 10:46 Pulse Ox 98 02/26/24 10:46 Oxygen Delivery Method Room Air 02/26/24 10:46 BMI result Body Mass Index 40.9 Const General: cooperative, healthy appearing and comfortable Nutritional Appearance: obese morbidly obese Orientation/consciousness: patient oriented x3 Limitations: no limitations HEENT Head: Yes normocephalic and Yes atraumatic Resp Effort & Inspection: normal respiratory effort and able to speak in complete sentences Auscultation: clear to auscultation bilaterally Cardio Rate: regular rate Rhythm: regular rhythm Skin Other: No patches of alopecia noted today Neuro General: patient oriented x3 Extrem Other: No active synovitis Normal nailfold capillaroscopy Assessment & Plan Assessment & Plan (1) Lupus: Comment: dx 2020 (arthralgias, fatigue, brain fog, photosensitive rashes, alopecia areata, ++DEMAR, borderline positive dsDNA) Took HCQ for 1 week and could not tolerate it Code(s): M32.9 - Systemic lupus erythematosus, unspecified Category: Medical Plan: This is a 39-year-old female with mild SLE who presents for follow-up. Doing quite well overall. I do not see any signs of active SLE on exam. SLE activity labs are stable Advised patient to avoid the sun, use long sleeves, long hands, sunscreen. There is no compelling need to start any DMARDs at this point Labs before next visit in 12 months (2) Hyperglycemia: Code(s): R73.9 - Hyperglycemia, unspecified Category: Medical Plan: HbA1c 8.7%. Has an appointment with PCP in 1 week to evaluate Plan I spent 24 minutes reviewing patient's chart, evaluating patient, ordering diagnostic workup, counseling patient, completing FMLA form and documenting in the chart Orders: Orders Anti DNA DS Antibody 11 Months M32.9 - Systemic lupus erythematosus, unspecified Erythrocyte Sedimentation Rate 11 Months M32.9 - Systemic lupus erythematosus, unspecified UA w Microscopic 11 Months M32.9 - Systemic lupus erythematosus, unspecified Comprehensive Met. Panel 11 Months M32.9 - Systemic lupus erythematosus, unspecified Complement C3 11 Months M32.9 - Systemic lupus erythematosus, unspecified Complement C4 11 Months M32.9 - Systemic lupus erythematosus, unspecified C Reactive Protein 11 Months M32.9 - Systemic lupus erythematosus, unspecified Protein Creatinine Ratio, Ur 11 Months M32.9 - Systemic lupus erythematosus, unspecified Complete Blood Count Auto Diff 11 Months M32.9 - Systemic lupus erythematosus, unspecified Coding Level of Care Code Est Pt Level 4 (98931) Diagnoses Lupus M32.9 Hyperglycemia R73.9
[2024-02-26 10:46] VITALS: BP 152/90; PULSE 80; O2SAT 98; BMI 40.9
== END 2024-02-26 11:04 | disposition home or self-care (01) ==
PROVIDERS: PCP Nurse Practitioner Family; Visit Provider Student in an Organized Health Care Education/Training Program
DX: M32.9 Systemic lupus erythematosus, unspecified (principal); R73.9 Hyperglycemia, unspecified
CPT/HCPCS: 99214

== ENCOUNTER 2024-09-12 07:17 | Outpatient (AMB) | payer OTHER, SELFPAY ==
--- OUTSIDE RECORDS SUMMARY | 2024-09-12 07:19 | XMS_ITS | Clinical Summary ---
Author Organization [facility] ity Address [address] [place] [address] Care Team Providers Care Denture Technician Name Role Phone Katty Mueller CNM Primary Care Provider [phone] Surgical History Surgery Date Site/Laterality Comments OTHER SURGICAL HISTORY PROCEDURE: DENIES PREVIOUS SURGERY Medical History Medical History Date Comments Nexplanon insertion 10/17/13 DX:Nexplanon insertion Family History Medical History Relation Name Comments Hypertension Mother DM-oral hypogly cemics Other: autism spectrum Son 1 Breast cancer Neg Hx Colon cancer Neg Hx Ovarian cancer Neg Hx Relation Name Status Comments Mother Son 1 Son 2 Social History Tobacco Use Types Packs/Day Years Used Date Smoking Tobacco: Some Days Cigarettes Smokeless Tobacco: Never Alcohol Use Standard Drinks/Week Comments Yes 0 (1 standard drink = 0.6 oz pur e alcohol) Comments Unknown Sex and Gender Information Value Date Recorded Sex Assigned at Not on file Legal Sex Female 7:49 AM EST Gender Identity Not on file Sexual Orientation Not on file Obstetrics History Plan of Treatment Health Maintenance Due Date Last Done Comments Hepatitis B Vaccines (1 of 3 - 19+ 3-dose series) 01/08/2004 Pneumococcal Vaccine: Pediatrics (0 to 5 Years) and At-Risk Patients (6 to 49 Years) (1 of 2 - PCV) 01/08/2004 Cervical Cancer Screening: Pap Smear 2006 DTaP,Tdap,and Td Vaccines (5 - Td or Tdap) 12/31/2011 12/30/2001, 10/04/1990, 06/04/1990, Additional history exists Depression Screening 02/06/2022 HIV Screening 02/06/2022 Hepatitis C Screening 02/06/2022 Social Influencers of Health Screening 02/06/2022 COVID-19 Vaccine ( season) 2023 Influenza Vaccine (#1) 2024 IPV Vaccines Completed 10/04/1990, 0 03/1990, 1985 MMR Vaccines Completed 11/04/1997, 06/04/1990 HIB Vaccines Aged Out No longer eligi ble based on patient's age to complete this topic HPV Vaccines Aged Out No longer eligi ble based on patient's age to complete this topic Hepatitis A Vaccines Aged Out No long er eligible based on patient's age to complete this topic Meningococcal ACWY Vaccine Aged Out N o longer eligible based on patient's age to complete this topic Meningococcal B Vaccine Aged Out No l onger eligible based on patient's age to complete this topic RSV Immunization Patients Under 20 months Aged Out No longer eligible based on patient's age to complete this topic Varicella Vaccines Aged Out No longer eligible based on patient's age to complete this topic Care Teams Denture Technician Relationship Specialty Start Date End Date Katty Mueller CNM [address], [place] PCP - General 09/27/21
--- NOTE | 2024-09-12 07:23 | A.OFFPC_ITS ---
Intake Visit Reasons: Anxiety moms passing Allergies No Known Allergies Allergy (Verified 02/26/24 10:45) Tobacco use date assessed: 12/22/22 Dental Screening Dental Screen Date: 12/22/22 HPI Anxiety moms passing HPI Details History of Present Illness The patient is a 39-year-old female presenting with anxiety following the unexpected passing of her mother. She denies any suicidal or homicidal ideation and reports having a supportive family and friends. She is seeking two weeks off work to regroup and has a therapy appointment scheduled. Review of Systems - Psychiatric: Reports anxiety. Denies s uicidal or homicidal ideation. Plan The patient will be started on a low dose of buspirone to manage her anxiety symptoms. An FMLA form will be completed to allow her two weeks off work, followed by a vacation to help her regroup. She is advised to attend her upcoming therapy appointment and to contact the clinician with any questions or concerns via the portal. A follow-up telehealth appointment is scheduled in about a month to assess her progress. Discussion Notes I discussed with the patient the plan to start a low dose of buspirone to help manage her anxiety. We also talked about completing the FMLA paperwork to allow her time off work and the importance of attending her therapy appointment. I advised her to reach out via the portal with any concerns and scheduled a follow-up in a month to monitor her progress. Patient Instructions - Start taking the prescribed low dose o f buspirone as directed. - Attend your upcoming therapy appointme nt. - Take two weeks off work to rest and re group. - Contact the clinician via the portal w ith any questions or concerns. - 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 How many drinks containing alcohol do you have on a typical day when you are drinking?: 1 or 2 3. How often do you have six or more drinks on one occasion?: Never Total Score: 0 CRIS-7 AMB Questionnaire CRIS-7 Date CRIS - 7 assessed: 12/22/22 Source: Developed by Drs. Ace Gar, Yoanna Linton, Sudhir Lopez and colleagues, with an educational kenn from [email or web address]. Physical exam (Primary Care) Tobacco/Smoking Status: Tobacco use Status Tobacco use date assessed 12/22/22 01/10/24 14:56 Patient Tobacco Use Status Current everyday Tobacco 01/10/24 14:56 Tobacco use type Cigarette 01/10/24 14:56 e-Cigarette/Vaping Use Never Used 01/10/24 14:56 Thrive Assessment: Date of Thrive Assessment Date Thrive assessed 12/22/22 01/10/24 14:56 Telehealth Telehealth Telehealth Platform: [facility] Location of provider rendering services: practice address Location of patient: address on file Patient Identification confirmed using: Name, : Yes Telehealth method: video Patient verbally consented to treatment: Yes Patient verbally consented to billing insurance company: Yes Patient informed of any privacy concerns related to visit: Yes Minutes spent on Phone/Video with Pt.: 15 Coding Level of Care Code Tele Est Pt Level 3 (29566) Diagnoses Anxiety F41.9 Grief F43.21 Assessment & Plan Assessment & Plan (1) Anxiety: Code(s): F41.9 - Anxiety disorder, unspecified Category: Medical (2) Grief: Code(s): F43.21 - Adjustment disorder with depressed mood Category: Medical Plan . Medications: New buspirone 5 mg PO BID 60 tabs 2RF 30 days
== END 2024-09-12 08:31 | disposition home or self-care (01) ==
LOC: HO.HMCC 07:17
PROVIDERS: PCP Nurse Practitioner Family; Visit Provider Nurse Practitioner Family
DX: F41.9 Anxiety disorder, unspecified (principal); F43.21 Adjustment disorder with depressed mood